=== PATIENT | female | born 1990 | race Caucasian/White ===

== ENCOUNTER 2017-12-27 16:28 | Emergency (ER) | payer BC ==
[2017-12-27 17:32] VITALS: BP 134/87
--- NOTE | 2017-12-27 17:45 | UC ---
Skin Complaint HPI - HPI Summary HPI Summary: Pt presents with ?insect bites all over. She tells me that she recently moved to a new apartment and they found bed bugs. She is currently staying at a hotel , but is concerned that these bites are due to the bed bugs. They are itchy and red. She has taken benadryl for the itch with good relief. Denies fever, chills , SOB, chest pain, abdominal pain, n/v/d/c. - History of Current Complaint Chief Complaint: UCSkin Time Seen by Provider: 12/27/17 17:45 Stated Complaint: RASH Hx Obtained From: Patient Onset/Duration: Sudden Onset Pain Intensity: 0 Pain Scale Used: 0-10 Numeric Location: Diffuse Character: Pruritus, Redness Alleviating Factor(s): Antihistamines - Allergy/Home Medications Allergies/Adverse Reactions: Allergies Allergy/AdvReac Type Severity Reaction Status Date / Time No Known Allergies Allergy Verified 12/27/17 17:32 Review of Systems Constitutional: Negative Skin: Other - Bites all over Respiratory: Negative Cardiovascular: Negative Gastrointestinal: Negative Musculoskeletal: Negative Neurological: Negative Psychological: Negative All Other Systems Reviewed And Are Negative: Yes PMH/Surg Hx/FS Hx/Imm Hx Previously Healthy: Yes - Surgical History Surgical History: Yes Surgery Procedure, Year, and Place: oral surgery - Family History Known Family History: Positive: None - Social History Alcohol Use: Weekly Substance Use Type: None Smoking Status (MU): Never Smoked Tobacco Physical Exam Triage Information Reviewed: Yes Appearance: Well-Appearing, No Pain Distress, Well-Nourished Vital Signs: Initial Vital Signs Temp 98.1 F 12/27/17 17:28 Pulse 95 12/27/17 17:28 Resp 19 12/27/17 17:28 BP 134/87 12/27/17 17:28 Pulse Ox 100 12/27/17 17:28 Vital Signs Reviewed: Yes Neck: Positive: Supple, Nontender, No Lymphadenopathy Respiratory: Positive: Chest non-tender, Lungs clear, Normal breath sounds, No respiratory distress, No accessory muscle use Cardiovascular: Positive: RRR, No Murmur, Pulses Normal Neurological: Positive: Alert Psychological: Positive: Age Appropriate Behavior Skin: Positive: Other - Diffuse ~5mm areas of erythema with central insect bite. Mild excoriations. Worse on b/l ankles and arms. None appear to be bleeding, drainging, or with significant edema. Course/Dx - Course Course Of Treatment: Bed bugs - advised pt that they will resolve without treatment, but can use some steroid cream for relief. - Diagnoses Provider Diagnoses: Bed bug bites Discharge - Discharge Plan Condition: Stable Disposition: HOME Prescriptions: Triamcinolone 0.1% Oint (NF) [Triamcinolone Acetonide] 0.1 % TOPICAL DAILY #1 tube Patient Education Materials: Bed Bugs (ED) Referrals: No Primary Care Phys,NOPCP [Primary Care Provider] - Additional Instructions: If you develop a fever, shortness of breath, chest pain, new or worsening symptoms - please call your PCP or go to the ED. Your blood pressure was mildly elevated at todays visit. Please see your primary provider within 4 weeks for recheck and re-evaluation.
== END 2017-12-27 18:14 | disposition home or self-care (01) ==
LOC: UCEAST 16:28
DX: S90.562A Insect bite (nonvenomous), left ankle, initial encounter (principal); S90.561A Insect bite (nonvenomous), right ankle, initial encounter; S40.862A Insect bite (nonvenomous) of left upper arm, initial encounter; S40.861A Insect bite (nonvenomous) of right upper arm, initial encounter; W57.XXXA Bitten or stung by nonvenomous insect and other nonvenomous arthropods, initial encounter; Y93.9 Activity, unspecified; Y92.039 Unspecified place in apartment as the place of occurrence of the external cause
CPT/HCPCS: 99202; G0463